=== PATIENT | male | born 1935 | race Caucasian/White ===

== ENCOUNTER → 2020-01-11 | Outpatient (CLI) | payer OTHER, MEDICARE ==
[~2020-01-11] MED LIST: ASPIRIN EC81 M1 PO; COQ-10100 MG PO; IBUPROFEN 200200 M1 PO; SIMVASTATIN40 MG PO
== END ==
LOC: RAD 09:05
DX: R91.8 Other nonspecific abnormal finding of lung field (principal); J98.4 Other disorders of lung; J10.1 Influenza due to other identified influenza virus with other respiratory manifestations